=== PATIENT | female | born 1940 | race Caucasian/White ===

== ENCOUNTER → 2017-07-01 | Outpatient (CLI) | payer MEDICARE, OTHER | LOC: COL.RAD 09:16 | DX: C34.31 Malignant neoplasm of lower lobe, right bronchus or lung (principal); C79.31 Secondary malignant neoplasm of brain; G93.6 Cerebral edema; I67.82 Cerebral ischemia; I10 Essential (primary) hypertension | CPT/HCPCS: A9585 ==

== ENCOUNTER 2018-06-11 15:07 | Inpatient (IN) | payer MEDICARE, OTHER ==
[~2018-06-11] VITALS: Ht 175.3 cm; Wt 62.8 kg
[2018-06-11 16:22] LABS: BASO % 0.2 % (0.0-2.0); GRAN % 92.4 % (42.2-75.2); HEMATOCRIT 38.5 % (37.0-47.0); LYMPH # 0.4 (1.2-3.4); LYMPH % 3.6 % (20.0-51.0); MEAN CELL VOLUME 89 fl (80.0-100.0); MEAN CORPUSCULAR HEMOGLOBIN 30 pg (27.0-31.0); MEAN CORPUSCULAR HGB CONC 34 g/dl (33.0-37.0); MEAN PLATELET VOLUME 10.5 fl (7.4-10.4); MONO # 0.3 (0.1-0.6); MONO % 3.4 % (1.7-9.3); PLATELET COUNT 175 K/mm3 (130-400); RED BLOOD COUNT 4.31 M/mm3 (4.10-5.30); REDCELL DISTRIBUTION WIDTH-CV 12.8 % (11.5-14.5)
[2018-06-11 16:26] LABS: PROTHROMBIN TIME 11.5 SECONDS (9.7-12.8)
[2018-06-11 16:32] LABS: ALBUMIN 3.5 gm/dL (3.5-5.0); BILIRUBIN,TOTAL 0.3 mg/dL (0.0-1.0); CALCIUM 9.2 mg/dL (8.4-10.2); CREATININE, serum 0.56 mg/dL (0.52-1.25); MAGNESIUM 1.5 mg/dL (1.6-2.3); PHOSPHOROUS 3.6 mg/dL (2.5-4.5); POTASSIUM 4.6 mmol/L (3.4-5.0); TOTAL PROTEIN 6.1 gm/dL (6.4-8.2)
[2018-06-11 17:07] LABS: COLLECTION METHOD CLEAN CATCH
[2018-06-11 17:27] LABS: PH 6 (5-8); SQUAMOUS EPITHELIAL 0-2 /hpf; URINE APPEARANCE Clear; URINE BACTERIA None Seen /hpf; URINE BILIRUBIN Negative (NEGATIVE); URINE BLOOD 2+ (NEGATIVE); URINE COLOR Yellow; URINE GLUCOSE 3+ (NEGATIVE); URINE KETONE Negative (NEGATIVE); URINE LEUKOCYTE ESTERASE Trace (NEGATIVE); URINE NITRATE Negative (NEGATIVE); URINE PROTEIN(semi-quant) 1+ (NEGATIVE); URINE UROBILINOGEN Negative (NEGATIVE)
[2018-06-11] MEDS ORDERED: GLUCOPHAGE1000 MG PO ×2 (17:56→18:29)
[2018-06-11] MEDS ORDERED: CORTEF 10MG TAB10 MG PO ×2 (17:57)
[2018-06-11] MEDS ORDERED: MARINOL5 MG PO (17:58)
[2018-06-11] MEDS ORDERED: MOBIC15 MG PO ×2 (17:58→18:26)
[2018-06-11] MEDS ORDERED: LEVAQUIN 5500 MG/TA1 PO (17:58)
[2018-06-11] MEDS ORDERED: NORVASC 5MG5 MG/TAB PO (17:59)
[2018-06-11] MEDS ORDERED: LIPITOR 40MG TA40 MG PO (17:59)
[2018-06-11] MEDS ORDERED: CATAPRES 0.1MG0.1 MG PO ×2 (17:59→18:21)
[2018-06-11] MEDS ORDERED: COZAAR100 MG PO ×2 (18:00→18:24)
[2018-06-11] MEDS ORDERED: HCTZ 25MG TAB25 MG PO (18:00)
[2018-06-11] MEDS ORDERED: TOPROL XL 50MG50 MG PO ×2 (18:00→18:21)
[2018-06-11] MEDS ORDERED: FOLIC ACID 11 MG/TA1 PO ×2 (18:01→18:25)
[2018-06-11] MEDS ORDERED: DECADRON 1MG TAB1 MG (18:01)
[2018-06-11] MEDS ORDERED: NORCO 325 MG-51 TAB PO (18:02)
[2018-06-11] MEDS ORDERED: K-DUR 10 MEQ T10 MEQ PO (18:22)
[2018-06-11] MEDS ORDERED: PREDNISONE20 MG PO (18:22)
[2018-06-11] MEDS ORDERED: MUCINEX 60600 MG/TA1 PO (18:23)
[2018-06-11] MEDS ORDERED: MAGNESIUM CITR100 MG PO (18:23)
[2018-06-11] MEDS ORDERED: BETOPTIC 0.5% 55 ML OP (18:24)
[2018-06-11] MEDS ORDERED: CEROVITE SENIOR1 TA1 PO (18:25)
[2018-06-11] MEDS ORDERED: VITAMIN D31000 I1 PO (18:25)
[2018-06-11] MEDS ORDERED: XALATAN EYE DROPS OU (18:27)
[2018-06-11 21:11] VITALS: BP 158/81; PULSE 88; TEMP 98.2
[2018-06-12] MEDS ORDERED: CORTEF 10MG TAB10 MG PO ×2 (03:16→03:17)
[2018-06-12] MEDS ORDERED: TIMOLOL MALEATE5 M1 OU (03:23)
[2018-06-12 05:27] VITALS: BP 171/83; PULSE 80; TEMP 98.1
[2018-06-12 05:35] LABS: BASO % 0.3 % (0.0-2.0); EOS # 0.1 (0.0-0.7); EOS % 1.8 % (0-4.0); GRAN # 4.6 (1.4-6.5); GRAN % 73.7 % (42.2-75.2); HEMATOCRIT 37.7 % (37.0-47.0); HEMOGLOBIN 12.5 g/dl (12.5-16.0); LYMPH # 0.8 (1.2-3.4); LYMPH % 12.6 % (20.0-51.0); MEAN CELL VOLUME 90 fl (80.0-100.0); MEAN CORPUSCULAR HEMOGLOBIN 30 pg (27.0-31.0); MEAN CORPUSCULAR HGB CONC 33 g/dl (33.0-37.0); MONO # 0.7 (0.1-0.6); MONO % 11.1 % (1.7-9.3); PLATELET COUNT 162 K/mm3 (130-400); RED BLOOD COUNT 4.19 M/mm3 (4.10-5.30)
[2018-06-12 05:46] LABS: CALCIUM 8.9 mg/dL (8.4-10.2); CHOLESTEROL RISK RATIO 2.6; CREATININE, serum 0.51 mg/dL (0.52-1.25); MAGNESIUM 1.7 mg/dL (1.6-2.3); POTASSIUM 3.5 mmol/L (3.4-5.0)
[2018-06-12 07:10] VITALS: BP 180/83; PULSE 90; TEMP 99
[2018-06-12 12:22] VITALS: BP 192/99; PULSE 104; TEMP 97.9
[2018-06-12 16:00] VITALS: BP 165/100; PULSE 94
[2018-06-12 18:58] VITALS: BP 188/87; PULSE 103; TEMP 98.5
[2018-06-13] VITALS (7 sets, daily range): BP systolic 159–196; BP diastolic 89–119; PULSE 81–109; TEMP 98.3–99
[2018-06-14 01:19] VITALS: BP 166/90; TEMP 97.5
[2018-06-14 05:08] VITALS: BP 153/78; PULSE 103; TEMP 98.1
[2018-06-14 07:48] VITALS: BP 161/90; PULSE 61; TEMP 98.1
[2018-06-14 09:23] LABS: BASO % 0.3 % (0.0-2.0); EOS # 0.1 (0.0-0.7); EOS % 1.6 % (0-4.0); GRAN # 4.9 (1.4-6.5); GRAN % 77.6 % (42.2-75.2); HEMATOCRIT 39.7 % (37.0-47.0); HEMOGLOBIN 13.2 g/dl (12.5-16.0); LYMPH # 0.6 (1.2-3.4); MEAN CELL VOLUME 90 fl (80.0-100.0); MEAN CORPUSCULAR HEMOGLOBIN 30 pg (27.0-31.0); MEAN CORPUSCULAR HGB CONC 33 g/dl (33.0-37.0); MEAN PLATELET VOLUME 10.7 fl (7.4-10.4); MONO # 0.7 (0.1-0.6); MONO % 11.2 % (1.7-9.3); PLATELET COUNT 177 K/mm3 (130-400); REDCELL DISTRIBUTION WIDTH-CV 13.1 % (11.5-14.5)
[2018-06-14] MEDS ORDERED: TOPROL XL 25MG25 MG PO (09:35)
[2018-06-14 09:47] LABS: CALCIUM 9.1 mg/dL (8.4-10.2); CREATININE, serum 0.53 mg/dL (0.52-1.25); MAGNESIUM 1.4 mg/dL (1.6-2.3); POTASSIUM 3.6 mmol/L (3.4-5.0)
[2018-06-14 13:05] VITALS: BP 127/85; PULSE 100; TEMP 98.3
[2018-06-14 16:40] VITALS: BP 119/73; PULSE 100; TEMP 98.4
== END 2018-06-14 18:30 | disposition home health service (06) | DRG 641 ==
LOC: COL.ER 15:07 → MEDICAL 18:31
PROVIDERS: Emergency Medicine; Nurse Practitioner; Physician Assistant
DX: E87.1 Hypo-osmolality and hyponatremia (principal); N39.0 Urinary tract infection, site not specified; C34.11 Malignant neoplasm of upper lobe, right bronchus or lung; E44.0 Moderate protein-calorie malnutrition; C79.31 Secondary malignant neoplasm of brain; C78.7 Secondary malignant neoplasm of liver and intrahepatic bile duct; Z66 Do not resuscitate; I10 Essential (primary) hypertension; E11.9 Type 2 diabetes mellitus without complications; F17.210 Nicotine dependence, cigarettes, uncomplicated; E83.42 Hypomagnesemia
CPT/HCPCS: 99223-AI; 99233-AI; 99239; G0378; G8987-GO; G8988-GO; J0360; J0696; J1650; J1815; J3475; J7030; J7121; J7512